=== PATIENT | male | born 1985 | race Caucasian/White ===

== ENCOUNTER 2019-01-02 19:15 | Emergency (ER) | payer BC ==
[2019-01-02] MEDS ORDERED: Ketorolac 60 MG/2 ML SDV IM ONE (19:35)
--- NOTE | 2019-01-02 19:39 | EDM.PDOC ---
ED HPI GENERAL MEDICAL PROBLEM - General Chief Complaint: Upper Extremity Injury/Pain Stated Complaint: PT HURT LT ARM Time Seen by Provider: 01/02/19 19:26 - History of Present Illness INITIAL COMMENTS - FREE TEXT/NARRATIVE: HISTORY AND PHYSICAL: History of present illness: The patient is a healthy 33-year-old male who is left-hand dominant and presents with complaints of pain to his left shoulder after helping a friend to move a large very heavy safe. The patient says that the safe was on a apolinar and he was attempting to hold the apolinar up a stair when he felt a pop in his left shoulder and has had pain ever since. This occurred about 45 minutes ago. Is not taking any medications for the pain nor placed any ice on it. He says that he feels diffuse pain to the anterior shoulder and radiating to his neck. He has no distal elbow forearm wrist or hand pain or discomfort and no numbness or tingling or weakness in his hands. Prior to these events he was in his usual state of good health with no systemic issues and there was no fall or direct trauma with this. Review of systems: As per history of present illness and below otherwise all systems reviewed and negative. Past medical history: As per history of present illness and as reviewed below otherwise noncontributory. Surgical history: As per history of present illness and as reviewed below otherwise noncontributory. Social history: No reported history of drug or alcohol abuse. Family history: As per history of present illness and as reviewed below otherwise noncontributory. Physical exam: General: Well-developed well-nourished man who is nontoxic and vital signs are noted by me. He is actually moving his left upper extremity without much distress but he is doing a very slowly. HEENT: Atraumatic, normocephalic, negative for conjunctival pallor or scleral icterus, mucous membranes moist, throat clear, neck supple, nontender, trachea midline. Lungs: Clear to auscultation, breath sounds equal bilaterally, chest nontender. Heart: S1S2, regular rate and rhythm no overt murmurs Abdomen: Soft, nondistended, nontender. Pelvis: Deferred Genitourinary: Deferred. Rectal: Deferred. Extremities: Atraumatic, negative for cords or calf pain. At the left upper extremity there are no bony defects or deformities appreciated with palpation of the clavicle and humerus but there is diffuse muscle spasm appreciated at the trapezius extending into the anterior deltoid area. There is some fullness and tenderness at the trigger point but there is no obvious step-off or dislocation and the patient can touch the contralateral shoulder. There is no distal humeral tenderness defects or deformities nor any elbow forearm wrist or hand or finger tenderness defects or deformities on the left. Patient can range of motion the left upper extremity distally to the shoulder and I can also range of motion the left shoulder passively although when he actively tries to do it he says Neurovascular unremarkable. Neuro: Awake, alert, oriented. Cranial nerves II through XII unremarkable. Cerebellum unremarkable. Motor and sensory unremarkable throughout. Exam nonfocal. Diagnostics: X-ray left shoulder Therapeutics: Toradol IM, sling Impression: Left shoulder injury Definitive disposition and diagnosis as appropriate pending reevaluation and review of above. Left Shoulder Pain Score (Numeric/FACES): 8 - Related Data Allergies Allergy/AdvReac Type Severity Reaction Status Date / Time prednisone Allergy Other Verified 01/02/19 19:25 Home Meds: Home Meds . [No Known Home Meds] 01/02/19 [History] Past Medical History - Infectious Disease History Infectious Disease History: Reports: None - Past Surgical History GI Surgical History: Reports: Cholecystectomy Social & Family History - Family History Family Medical History: Noncontributory - Tobacco Use Smoking Status *Q: Current Every Day Smoker Years of Tobacco use: 7 Packs/Tins Daily: 0.5 - Caffeine Use Caffeine Use: Reports: Coffee, Energy Drinks, Soda, Tea - Recreational Drug Use Recreational Drug Use: No Review of Systems - Review of Systems Review Of Systems: ROS reveals no pertinent complaints other than HPI. ED EXAM, GENERAL - Physical Exam Exam: See Below (See dictation) Course - Vital Signs Last Recorded V/S: Last Vital Signs Temp 36.4 C 01/02/19 19:25 Pulse 111 H 01/02/19 19:25 Resp 20 01/02/19 19:25 BP 132/87 01/02/19 19:25 Pulse Ox 98 01/02/19 19:25 - Orders/Labs/Meds Orders: Active Orders 24 hr Category Date Time Status DME for Discharge [COMM] Stat Oth 01/02/19 20:34 Ordered Meds: Medications Discontinued Medications Generic Name Dose Route Start Last Admin Trade Name Freq PRN Reason Stop Dose Admin Ketorolac Tromethamine 60 mg 01/02/19 19:35 01/02/19 19:41 Toradol IM 01/02/19 19:36 60 mg ONETIME ONE Administration Departure - Departure Time of Disposition: 20:34 Disposition: Home, Self-Care 01 Condition: Good Clinical Impression: Injury of left shoulder Qualifiers: Encounter type: initial encounter Qualified Code(s): S49.92XA - Unspecified injury of left shoulder and upper arm, initial encounter - Discharge Information Forms: ED Department Discharge Additional Instructions: The following information is given to patients seen in the emergency department who are being discharged to home. This information is to outline your options for follow-up care. We provide all patients seen in our emergency department with a follow-up referral. The need for follow-up, as well as the timing and circumstances, are variable depending upon the specifics of your emergency department visit. If you don't have a primary care physician on staff, we will provide you with a referral. We always advise you to contact your personal physician following an emergency department visit to inform them of the circumstance of the visit and for follow-up with them and/or the need for any referrals to a consulting specialist. The emergency department will also refer you to a specialist when appropriate. This referral assures that you have the opportunity for followup care with a specialist. All of these measure are taken in an effort to provide you with optimal care, which includes your followup. Under all circumstances we always encourage you to contact your private physician who remains a resource for coordinating your care. When calling for followup care, please make the office aware that this follow-up is from your recent emergency room visit. If for any reason you are refused follow-up, please contact the [facility] emergency department at and ask to speak to the emergency department charge nurse. [facility] Professional [facility] [address] [place] [address], [address] [place] [address] Dr Garcia, Orthopedist [facility] [address] [place] [address] Dr Harmon - Dr Vance - Dr Castellanos [facility] [address] [place] [id number] [facility] [address] [place], [place] [id number] Use ice to areas of discomfort pain and swelling for the next 24 hours and then continue to use ice on bone areas that hurt but use heat on your neck muscles. This will take time to improve and use the diclofenac you have been prescribed for anti-inflammatory purposes as well as pain management. Follow-up with your primary care physician in the clinic and you may also follow-up with one of the local orthopedic surgeons in our area as we do not have orthopedics at our hospital. Return to ER as needed and as discussed. Use sling for the next 24 hours and then remove and try to range of motion the arm and shoulder slowly and carefully to keep things open and moving. - My Orders Last 24 Hours: My Active Orders 01/02/19 20:34 DME for Discharge [COMM] Stat - Assessment/Plan Last 24 Hours: My Active Orders 01/02/19 20:34 DME for Discharge [COMM] Stat
--- NOTE | 2019-01-02 20:26 | CR ---
INDICATION: Shoulder pain COMPARISON: None available. FINDINGS: The left shoulder was examined with AP internal and external rotation views for a total of two views. The osseous structures are in anatomic alignment without fracture or dislocation. There is anatomic alignment of the humeral head and glenoid. The visualized chest is clear. IMPRESSION: Normal left shoulder. Dictated by Walter Horn MD @ Jan 02 2019 8:23PM Signed by Dr. Walter Horn @ Jan 02 2019 8:25PM
== END 2019-01-02 20:45 | disposition home or self-care (01) ==
LOC: MW.ED 19:15
DX: S49.92XA Unspecified injury of left shoulder and upper arm, initial encounter (principal); F17.210 Nicotine dependence, cigarettes, uncomplicated; Z88.8 Allergy status to other drugs, medicaments and biological substances; X50.0XXA Overexertion from strenuous movement or load, initial encounter
CPT/HCPCS: 73030; 96372; 99283; J1885